=== PATIENT | female | born 1975 | race Asian ===

== ENCOUNTER → 2024-12-25 | Outpatient (CLI) | payer BC, SELFPAY ==
[2024-12-25 18:16] LABS: Prothrombin Time 10.6 Seconds (9.0-12.2)
[2024-12-25 18:25] LABS: Alanine Aminotransferase 142 U/L (10-49); Albumin, Serum 4.1 gm/dL (3.5-5.0); Alkaline Phosphatase 53 U/L (46-116); Aspartate Amino Transferase 73 U/L (0-34); Bilirubin,Direct 0.1 mg/dL (0.0-0.3); Bilirubin,Total 0.5 mg/dL (0.3-1.2); Total Protein 7.3 gm/dL (5.7-8.2)
[2024-12-25 18:29] LABS: Ferritin 69 ng/mL (7.3-270.7); Iron 76 mcg/dL (50-170); Percent Iron Saturation 17 % (20-55); Total Iron Binding Capacity 440 mcg/dL (250-425); Unsaturated Iron Binding 364 (225-295)
[2024-12-25 19:10] LABS: Hepatitis A Antibody IgM Non Reactive (Non React); Hepatitis B Core Antibody IgM Non Reactive (Non React); Hepatitis B Surface Antigen Non Reactive (Non React); Hepatitis C Antibody Non Reactive (Non React)
[2024-12-30 07:04] LABS: ACTH, Plasma* 10 pg/mL (6-50)
[2025-01-03 06:48] LABS: ANA Screen, IFA POSITIVE (NEGATIVE); Alpha-1-Antitrypsin* 147 mg/dL (83-199); Ceruloplasmin* 33 mg/dL (14-48); Copper* 149 mcg/dL (70-175); Mitochondrial Ab NEGATIVE (NEGATIVE)
== END | disposition home or self-care (01) ==
LOC: COPL 17:22
PROVIDERS: Referring Provider Specialist; Visit Provider Specialist
DX: R94.5 Abnormal results of liver function studies (principal)
CPT/HCPCS: 36415; 80074; 80076; 82024; 82103; 82105; 82390; 82525; 82728; 83540; 83550; 85610; 86038; 86255

== ENCOUNTER → 2025-02-28 | Outpatient (CLI) | payer BC, SELFPAY ==
--- NOTE | 2025-02-28 10:18 | XR_ITS ---
Examination: Abdomen sonogram, Limited Date and time of exam: February 28, 2025 1024 hours INDICATIONS: Abnormal liver function tests on laboratory examination December 2024 Technique: Real-time baird scale transabdominal sonographic images of the upper abdomen obtained. Findings: Absent gallbladder Normal common bile duct 0.5 cm Pancreatic head 1.8 cm Liver 12.0 cm no liver lesions Normal hepatopedal portal venous flow Patent IVC IMPRESSION: Normal common bile duct Liver normal size no focal liver lesions
[2025-02-28 11:32] LABS: Basophils % (Auto) 0 % (0-2.5); Eosinophils % (Auto) 0 % (0-10); Hematocrit 39.7 % (36.0-46.0); Hemoglobin 13.2 g/dL (12.0-16.0); Immature Granulocytes % (Auto) 1 % (0-0); Immature Granulocytes Auto 0.04 Thou/mm3 (0.00-0.00); Lymphocytes % (Auto) 19 % (10-50); Mean Corpuscular HGB Conc 33.2 g/dl (31.0-37.0); Mean Corpuscular Hemoglobin 31.9 pg (25.0-35.0); Mean Corpuscular Volume 96 fL (80-100); Monocytes # (Auto) 0.3 Thou/mm3 (0.0-0.8); Monocytes % (Auto) 6 % (0-12); Neutrophils % (Auto) 74 % (37-80); Nucleated Red Blood Cell % 0 /100 WBC (0); Platelet Count 216 Thou/mm3 (140-440); RDW Standard Deviation 44.2 fL (36.4-46.3); Red Blood Count 4.14 Miln/mm3 (4.00-5.20); White Blood Count 5.3 Thou/mm3 (3.6-11.0)
[2025-02-28 11:41] LABS: Alanine Aminotransferase 30 U/L (10-49); Albumin, Serum 4.2 gm/dL (3.5-5.0); Albumin/Globulin Ratio 1.8 (1.2-2.2); Alkaline Phosphatase 44 U/L (46-116); Anion Gap 5 (7-16); Aspartate Amino Transferase 21 U/L (0-34); BUN/Creatinine Ratio 20 Ratio (12-20); Bilirubin,Total 0.7 mg/dL (0.3-1.2); Blood Urea Nitrogen 16 mg/dL (9-23); Calcium 9.6 mg/dL (8.3-10.6); Calcium (Corrected) 9.6 mg/dL (8.5-10.1); Carbon Dioxide 32.7 mMol/L (20.0-31.0); Chloride 103 mMol/L (98-107); Creatinine (Component) 0.8 mg/dL (0.6-1.3); Globulin 2.4 gm/dL (2.3-3.5); Glucose 120 mg/dL (74-106); Osmolality,Calculated 283 (275-295); Potassium 4.3 mMol/L (3.4-5.1); Sodium 141 mMol/L (136-145); Total Protein 6.6 gm/dL (5.7-8.2); eGFR > 60 See Note
== END | disposition home or self-care (01) ==
PROVIDERS: PCP Internal Medicine; Referring Provider Specialist; Visit Provider Specialist
DX: K75.4 Autoimmune hepatitis (principal); R94.4 Abnormal results of kidney function studies; R94.5 Abnormal results of liver function studies
CPT/HCPCS: 36415; 76705; 80053; 85025